=== PATIENT | female | born 1990 | race Caucasian/White ===

== ENCOUNTER 2016-04-16 06:19 | Emergency (ER) | payer OTHER ==
--- NOTE | 2016-04-16 06:44 | PDOC ---
History of Present Illness <Kimberly Dickerson - Last Filed: 04/16/16 06:55> - General History Source: Patient Exam Limitations: No Limitations - History of Present Illness Initial Comments: 04/16/16 07:06 The patient is a 26-year-old female, with a significant past medical history of obesity and hypertension (on Valsartan, 160mg nightly), who presents to the emergency department with chest pain that began a couple of days ago. The patient states the pain is primarily focused on the center of the chest, but can radiate to the right or left side of her chest. She describes that the pain on the left side is sharp in comparison to the right side. She denies associated diaphoresis, palpitations, and shortness of breath. She denies fever , chills, cough, headache, and dizziness. She reports the pain is exacerbated upon strenuous activity and does not report any alleviating factors. The patient reports her LMP was 2 weeks ago and states her menstrual periods are irregular. The patient reports previously being on hydroclothazar for HTN, but being switched to Valsartan recently. She denies nausea, vomiting, diarrhea, and constipation. Allergies: None reported. Past Surgical History: None reported. Social History: +Smoker. Denies alcohol or drug use. <Berta Hernandez - Last Filed: 04/16/16 07:06> <Nate Taylor - Last Filed: 04/16/16 14:16> - General Stated Complaint: CHEST PAIN Time Seen by Provider: 04/16/16 06:21 Past History - Past Medical History HTN: Yes - Psycho/Social/Smoking Cessation Hx Suicidal Ideation: No Smoking History: Current every day smoker Have you smoked in the past 12 months: No Number of Cigarettes Smoked Daily: 5 Hx Alcohol Use: No Drug/Substance Use Hx: No <Kimberly Dickerson - Last Filed: 04/16/16 06:55> <Berta Hernandez - Last Filed: 04/16/16 07:06> <Nate Taylor - Last Filed: 04/16/16 14:16> - Past Medical History Allergies/Adverse Reactions: Allergies Allergy/AdvReac Type Severity Reaction Status Date / Time No Known Allergies Allergy Verified 12/30/15 19:52 Home Medications: Ambulatory Orders Hydrochlorothiazide [Hctz -] 25 mg PO DAILY #30 tablet 12/30/15 Sulfamethoxazole/Trimethoprim [Bactrim *Ds*] 1 tab PO BID #14 tablet 12/30/15 Review of Systems - Review of Systems Able to Perform ROS?: Yes Comments:: 04/16/16 07:06 GENERAL/CONSTITUTIONAL: No fever or chills. No weakness. HEAD, EYES, EARS, NOSE AND THROAT: No change in vision. No ear pain or discharge. No sore throat. CARDIOVASCULAR: +Chest pain. No shortness of breath. RESPIRATORY: No cough, wheezing, or hemoptysis. GASTROINTESTINAL: No nausea, vomiting, diarrhea or constipation. GENITOURINARY: No dysuria, frequency, or change in urination. MUSCULOSKELETAL: No joint or muscle swelling or pain. No neck or back pain. SKIN: No rash NEUROLOGIC: No headache, vertigo, loss of consciousness, or change in strength/ sensation. ENDOCRINE: No increased thirst. No abnormal weight change. HEMATOLOGIC/LYMPHATIC: No anemia, easy bleeding, or history of blood clots. ALLERGIC/IMMUNOLOGIC: No hives or skin allergy. <Berta Hernandez - Last Filed: 04/16/16 07:06> *Physical Exam - Vital Signs Last Vital Signs Temp Pulse Resp BP Pulse Ox 98.2 F 95 H 21 141/99 99 04/16/16 06:48 04/16/16 06:48 04/16/16 06:48 04/16/16 06:48 04/16/16 06:48 - Physical Exam Comments: 04/16/16 07:07 GENERAL: The patient is awake, alert, and fully oriented, in no acute distress. HEAD: Normal with no signs of trauma. EYES: Pupils equal, round and reactive to light, extraocular movements intact, sclera anicteric, conjunctiva clear with no pallor. ENT: Ears normal, nares patent, oropharynx clear without exudates. Moist mucous membranes. NECK: Normal range of motion, supple without lymphadenopathy, JVD, or masses. LUNGS: Breath sounds equal, clear to auscultation bilaterally. No wheeze/ crackles. HEART: Regular rate and rhythm, normal S1 and S2 without murmur or rub. ABDOMEN: Soft/nontender/nondistended. BS wnl. No guarding or rebound. No palpable masses. No hepatosplenomegaly. EXTREMITIES: Normal range of motion, no edema. No clubbing or cyanosis. No cords, erythema, or tenderness. NEUROLOGICAL: Cranial nerves II through XII grossly intact. Normal speech, normal gait. PSYCH: Normal mood, normal affect. SKIN: Warm, Dry, normal turgor, no rashes or lesions noted. <Berta Hernandez - Last Filed: 04/16/16 07:06> - Vital Signs Last Vital Signs Temp Pulse Resp BP Pulse Ox 98.2 F 84 18 128/76 98 04/16/16 06:48 04/16/16 08:01 04/16/16 08:01 04/16/16 08:01 04/16/16 08:01 <Nate Taylor - Last Filed: 04/16/16 14:16> ED Treatment Course - LABORATORY CBC & Chemistry Diagram: 04/16/16 06:05 - RADIOLOGY Radiology Studies Ordered: Category Date Time Status CHEST PA & LAT [RAD] Stat Radiology 04/16/16 06:40 Ordered <Kimberly Dickerson - Last Filed: 04/16/16 06:55> - LABORATORY CBC & Chemistry Diagram: 04/16/16 06:05 - ADDITIONAL ORDERS Additional order review: Laboratory Results 04/16/16 04/16/16 06:05 06:05 INR Cancelled Creatine Kinase Cancelled Troponin I Cancelled Total Amylase Cancelled Lipase Cancelled 04/16/16 06:05 RBC 4.89 MCV 89.2 MCHC 32.7 RDW 13.4 MPV 8.5 Neutrophils % 48.6 Lymphocytes % 43.6 H Monocytes % 4.5 Eosinophils % 1.5 Basophils % 1.8 <Berta Hernandez - Last Filed: 04/16/16 07:06> - LABORATORY CBC & Chemistry Diagram: 04/16/16 06:05 04/16/16 07:31 - ADDITIONAL ORDERS Additional order review: Laboratory Results 04/16/16 04/16/16 04/16/16 12:55 07:31 07:31 INR D-Dimer < 200 Sodium 141 Potassium 4.1 Chloride 111 H Carbon Dioxide 19 L D Anion Gap 11 BUN 7 D Creatinine 0.6 D Creat Clearance w eGFR > 60 Random Glucose 77 Calcium 8.3 L Total Bilirubin 0.3 D AST 21 D ALT 41 Alkaline Phosphatase 88 Creatine Kinase 134 Troponin I < 0.02 Total Protein 7.2 Albumin 4.0 Total Amylase Lipase Serum , Qual Negative 04/16/16 04/16/16 04/16/16 07:31 06:05 06:05 INR 1.03 Cancelled D-Dimer Sodium Potassium Chloride Carbon Dioxide Anion Gap BUN Creatinine Creat Clearance w eGFR Random Glucose Calcium Total Bilirubin AST ALT Alkaline Phosphatase Creatine Kinase Cancelled Troponin I Cancelled Total Protein Albumin Total Amylase Cancelled Lipase Cancelled Serum , Qual 04/16/16 06:05 RBC 4.89 MCV 89.2 MCHC 32.7 RDW 13.4 MPV 8.5 Neutrophils % 48.6 Lymphocytes % 43.6 H Monocytes % 4.5 Eosinophils % 1.5 Basophils % 1.8 <Nate Taylor - Last Filed: 04/16/16 14:16> Medical Decision Making - Medical Decision Making 04/16/16 06:51 Pt comes with chest pain. States that the pain has been ongoing for days and that she came in today because she was worried and the pain was not going away. Pt has HTN and she takes 160 mg Valsartan nightly. SHe gets the meds from the [facility]. SHe used to take HCTZ, but then she was taken off as her BP imporved, and then the BP returned. Pt is obese and she understands that weight loss and low salt diet could reduce her HTN. She has no other medical problems. She smoke cigarettes; she is not on OCPs and she takes no other meds. 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 Pt's EKG is NSR. 04/16/16 06:55 Pt will be signed out to the day docto, who will follow her labs and her CXR. <Kimberly Dickerson - Last Filed: 04/16/16 06:55> *DC/Admit/Observation/Transfer <Kimberly Dickerson - Last Filed: 04/16/16 06:55> - Attestations Scribe Attestion: 04/16/16 07:07 Documentation prepared by Berta Hernandez, acting as electromedical service engineer for Kimberly Dickerson MD. <Berta Hernandez - Last Filed: 04/16/16 07:06> - Discharge Dispostion Admit: No <DaogusNate carrasco - Last Filed: 04/16/16 14:16> Diagnosis at time of Disposition: Viral infection - Discharge Dispostion Disposition: HOME Condition at time of disposition: Stable - Referrals Referrals: Lori Savage MD [Primary Care Provider] -
[2016-04-16 06:53] VITALS: TEMP 98.2; BMI 36.2
[2016-04-16 06:54] LABS: BASOPHIL 1.8 % (0-2.0); EOSINOPHIL 1.5 % (0-4.5); MCH 29.1 pg (25.7-33.7); MCHC 32.7 g/dl (32.0-36.0); MEAN CELL VOLUME 89.2 fl (80-96); MEAN PLT VOLUME 8.5 fl (7.5-11.1); NEUTROPHILS 48.6 % (42.8-82.8); PLATELET COUNT 264 K/MM3 (134-434); RDW 13.4 % (11.6-15.6); WHITE BLOOD COUNT 14.3 K/mm3 (4.0-10.0)
[2016-04-16 08:14] LABS: ANION GAP 11 (8-16); CALCIUM 8.3 mg/dL (8.5-10.1); CO2 19 mmol/L (21-32); CREATININE 0.6 mg/dL (0.55-1.02); GLUCOSE,RANDOM 77 mg/dL (74-106); SGOT/AST 21 U/L (15-37); SGPT/ALT 41 U/L (12-78)
[2016-04-16 08:19] LABS: ALK PHOS 88 U/L (45-117); BILIRUBIN,TOTAL 0.3 mg/dL (0.2-1.0); TOT PROT 7.2 g/dl (6.4-8.2); TROPONIN I < 0.02 ng/ml (0.00-0.05)
[2016-04-16 08:24] LABS: INR 1.03 (0.82-1.09); PROTHROMBIN TIME (PATIENT) 11.3 SEC (9.98-11.88)
[2016-04-16] MEDS ORDERED: guaiFENesin/D-M SUGAR-FREE/ACLHOL-FREE 118 ML BOTTLE PO PRN (14:17)
[2016-04-16 14:48] VITALS: BP 129/67; PULSE 89
[2016-04-16] MEDS ORDERED: guaiFENesin/D-METHORPHAN HB 10 ML UNIT-DOSE CUPS ONE (14:51)
--- NOTE | 2016-04-16 23:42 | EKG ---
Test Reason : Blood Pressure : / mmHG Vent. Rate : 095 BPM Atrial Rate : 095 BPM P-R Int : 146 ms QRS Dur : 088 ms QT Int : 344 ms P-R-T Axes : 041 034 034 degrees QTc Int : 432 ms POOR DATA QUALITY, INTERPRETATION MAY BE ADVERSELY AFFECTED NORMAL SINUS RHYTHM NORMAL ECG WHEN COMPARED WITH ECG OF 30-DEC-2015 19:55, NO SIGNIFICANT CHANGE WAS FOUND Confirmed by ADAM NIX, JAGDISH ([id number]) on 04/16/2016 11:41:49 PM Referred By: Confirmed By:JAGDISH MEDINA MD
== END 2016-04-16 14:54 | disposition home or self-care (01) ==
LOC: JER 06:19
DX: B34.9 Viral infection, unspecified (principal); I10 Essential (primary) hypertension; F17.210 Nicotine dependence, cigarettes, uncomplicated
CPT/HCPCS: 36415; 71020-TC; 80053; 82550; 84484; 84703; 85025; 85379; 85610; 93005; 93010; 99284-25

== ENCOUNTER 2023-02-04 10:02 | Emergency (ER) | payer BC ==
[2023-02-04 10:49] VITALS: TEMP 98; BMI 42.9
[2023-02-04 11:40] LABS: EPI CELLS 12 /uL (0-25.1); HYALINE CASTS 2 /uL (0-3.1); PH,URINE 5.5 (5.0-8.0); URINE APPEARANCE CLOUDY; URINE BACTERIA >9,000 /uL (0-1359); URINE BILIRUBIN NEGATIVE (NEGATIVE); URINE COLOR YELLOW; URINE GLUCOSE (UA) NEGATIVE (NEGATIVE); URINE KETONE NEGATIVE (NEGATIVE); URINE LEUK ESTERASE 2+ (NEGATIVE); URINE NITRITE POSITIVE (NEGATIVE); URINE PROTEIN 1+ (NEGATIVE); URINE WBC 893 /uL (0-25.8)
[2023-02-04 11:42] LABS: HEMATOCRIT 43.6 % (32.4-45.2); HEMOGLOBIN 14.9 GM/dL (10.7-15.3); MCH 30.6 pg (25.7-33.7); MCHC 34.2 g/dl (32.0-36.0); MEAN CELL VOLUME 89.6 fl (80-96); MEAN PLT VOLUME 7.3 fl (7.5-11.1); PLATELET COUNT 365 10^3/uL (134-434); RBC 4.86 M/mm3 (3.60-5.2); WHITE BLOOD COUNT 9.9 K/mm3 (4.0-10.0)
[2023-02-04 11:47] LABS: ALBUMIN 3.7 g/dl (3.4-5.0); BLOOD UREA NITROGEN 7.8 mg/dL (7-18); CALCIUM 8.3 mg/dL (8.5-10.1); MAGNESIUM 2.3 mg/dL (1.8-2.4)
[2023-02-04 11:50] LABS: CREATININE 0.7 mg/dL (0.55-1.3)
[2023-02-04 11:52] LABS: BILIRUBIN,TOTAL 0.2 mg/dL (0.2-1); TOT PROT 7.4 g/dl (6.4-8.2)
[2023-02-04 12:12] LABS: URINE RBC 218.9 /uL (0-23.9)
[2023-02-04] MEDS ORDERED: SODIUM CHLORIDE 1,000 ML IV ONE ×2 (12:58→14:09)
[2023-02-04] MEDS ORDERED: FAMOTIDINE 20 MG/50 ML IVPB 20 MG in PREMIX 50 IVPB ONE ×2 (12:58→14:08)
[2023-02-04] MEDS ORDERED: ONDANSETRON 4 MG/2 ML VIAL IVPB ONE ×2 (12:58→14:08)
[2023-02-04] MEDS ORDERED: LORazepam 0.5 MG TABLET PO ONE (13:19)
[2023-02-04 13:36] LABS: URINE AMPHETAMINES NEGATIVE (NEGATIVE)
[2023-02-04 13:37] LABS: COCAINE, UR NEGATIVE (NEGATIVE); METHADONE, UR NEGATIVE (NEGATIVE); OPIATES, URI NEGATIVE (NEGATIVE); PHENCYCLIDINE,URINE NEGATIVE (NEGATIVE); URINE BARBITURATES NEGATIVE (NEGATIVE); URINE BENZODIAZEPINES NEGATIVE (NEGATIVE)
[2023-02-04 13:44] VITALS: BP 143/88; PULSE 97; RESP 25
[2023-02-04] MEDS ORDERED: CEPHALEXIN MONOHYDRATE 250 MG CAPSULE (FP) PO ONE (13:46)
[2023-02-04] MEDS ORDERED: LORazepam 0.5 MG TABLET ONE (14:05)
[2023-02-04] MEDS ORDERED: CEPHALEXIN MONOHYDRATE 500 MG CAPSULE (UD) ONE (14:06)
[2023-02-04] MEDS ORDERED: CEFTRIAXONE 1 GM in DEXTROSE 5%-WATER - 50 ML IVPB ONE (14:08)
[2023-02-04] MEDS ORDERED: ONDANSETRON 4 MG/2 ML VIAL ONE (14:10)
[2023-02-04] MEDS ORDERED: CEFTRIAXONE 1 GM/50 ML BAG ONE (14:11)
[2023-02-04] MEDS ORDERED: FAMOTIDINE 20 MG/50 ML IVPB 20 MG/50 ML MG IVPB ONE (14:11)
[2023-02-04 14:15] LABS: ANISOCYTOSIS 0; HELMET CELLS 0; HOWELL-JOLLY BODIES 0; MACROCYTOSIS 0; OVALOCYTE 0; ROULEAU 0; SICKELED CELLS 0; TARGET CELLS 0; TEAR DROP CELLS 0; TOXIC GRANULATION 0
[2023-02-04] MEDS ORDERED: METOCLOPRAMIDE HCL INJECTION 10 MG/2 ML VIAL IVPB ONE (14:45)
[2023-02-04] MEDS ORDERED: METOCLOPRAMIDE HCL INJECTION 10 MG/2 ML VIAL ONE (14:56)
[2023-02-04] MEDS ORDERED: HALOPERIDOL LACTATE 5 MG/ML IM ONE (15:11)
[2023-02-04] MEDS ORDERED: HALOPERIDOL LACTATE 5 MG/ML ONE (15:15)
== END 2023-02-04 16:39 | disposition home or self-care (01) ==
LOC: JER 10:02
PROC: 3E03329 Introduction of Other Anti-infective into Peripheral Vein, Percutaneous Approach (ICD-10-PCS; principal; 2023-02-04)
PROC: 3E033GC Introduction of Other Therapeutic Substance into Peripheral Vein, Percutaneous Approach (ICD-10-PCS; 2023-02-04)
PROC: 3E033GC Introduction of Other Therapeutic Substance into Peripheral Vein, Percutaneous Approach (ICD-10-PCS; 2023-02-04)
PROC: 3E033GC Introduction of Other Therapeutic Substance into Peripheral Vein, Percutaneous Approach (ICD-10-PCS; 2023-02-04)
PROC: 3E0337Z Introduction of Electrolytic and Water Balance Substance into Peripheral Vein, Percutaneous Approach (ICD-10-PCS; 2023-02-04)
PROC: 3E023GC Introduction of Other Therapeutic Substance into Muscle, Percutaneous Approach (ICD-10-PCS; 2023-02-04)
DX: F41.0 Panic disorder [episodic paroxysmal anxiety] (principal); R63.0 Anorexia; G47.9 Sleep disorder, unspecified
CPT/HCPCS: 36415; 71045-TC-FY; 80053; 80307; 81003; 82962; 83735; 84443; 84703; 85025; 87086; 87186; 93005; 93010; 99285-25

== ENCOUNTER 2023-05-30 15:37 | Emergency (ER) | payer BC ==
[2023-05-30 16:05] VITALS: BP 126/79; PULSE 99; RESP 16; TEMP 98.6; BMI 44.2
[2023-05-30 17:19] LABS: HEMATOCRIT 42.6 % (32.4-45.2); HEMOGLOBIN 14.3 G/dL (10.7-15.3); MCH 31.6 pg (25.7-33.7); MCHC 33.6 g/dl (32.0-36.0); MEAN PLT VOLUME 7.9 fl (7.5-11.1); PLATELET COUNT 254.3 10^3/uL (134-434); RBC 4.53 10^6/uL (3.60-5.2); WHITE BLOOD COUNT 13.4 10^3/uL (4.0-10.8)
[2023-05-30 17:34] LABS: ALBUMIN 4.6 g/dl (3.4-5.0); BILIRUBIN,TOTAL 0.5 mg/dl (0.2-1); CALCIUM 9.2 mg/dl (8.5-10.1); CREATININE 0.7 mg/dl (0.6-1.3); MAGNESIUM 2.4 mg/dL (1.8-2.4); PHOSPHOROUS 2.9 (2.5-4.9); TOT PROT 7.6 g/dl (6.4-8.2)
[2023-05-30 18:44] LABS: METHADONE, UR NEGATIVE (NEGATIVE); OPIATES, URI NEGATIVE (NEGATIVE); PHENCYCLIDINE,URINE NEGATIVE (NEGATIVE); URINE BARBITURATES NEGATIVE (NEGATIVE); URINE BENZODIAZEPINES NEGATIVE (NEGATIVE)
[2023-05-30 19:25] LABS: COCAINE, UR NEGATIVE (NEGATIVE); URINE AMPHETAMINES NEGATIVE (NEGATIVE)
[2023-05-30 19:43] LABS: PLATELET ESTIMATE ADEQUATE
== END 2023-05-30 21:58 | disposition home or self-care (01) ==
LOC: FER 15:37
DX: T14.91XA Suicide attempt, initial encounter (principal); F10.920 Alcohol use, unspecified with intoxication, uncomplicated; F12.90 Cannabis use, unspecified, uncomplicated; R45.851 Suicidal ideations; M79.604 Pain in right leg; G89.29 Other chronic pain; R26.81 Unsteadiness on feet; Z20.822 Contact with and (suspected) exposure to COVID-19; Y90.8 Blood alcohol level of 240 mg/100 ml or more
CPT/HCPCS: 0241U-QW; 36415; 80053; 80307; 81003; 83735; 84100; 84703; 85025; 87086; 93005; 99285-25

== ENCOUNTER 2023-10-13 11:17 | Emergency (ER) | payer BC ==
[2023-10-13 11:28] VITALS: BP 132/84; PULSE 83; RESP 17; TEMP 98.5; BMI 38.2
[2023-10-13] MEDS ORDERED: KETOROLAC TROMETHAMINE 30 MG/1 ML VIAL ONE (12:44)
[2023-10-13] MEDS ORDERED: ONDANSETRON 4 MG/2 ML VIAL ONE (12:44)
[2023-10-13] MEDS: SODIUM CHLORIDE 0.9% 1000 ML INFUS.BAG IV ONE (13:02)
[2023-10-13] MEDS: ONDANSETRON 4 MG/2 ML VIAL IVPUSH ONE (13:02)
[2023-10-13] MEDS: KETOROLAC TROMETHAMINE 30 MG/1 ML VIAL IVPUSH ONE (13:02)
[2023-10-13 13:10] LABS: BASO % 0.2 % (0-2.0); EOS % 3.4 % (0-4.5); HEMATOCRIT 39.5 % (32.4-45.2); HEMOGLOBIN 13.3 GM/dL (10.7-15.3); MCH 30.4 pg (25.7-33.7); MCHC 33.6 g/dl (32.0-36.0); MEAN CELL VOLUME 90.5 fl (80-96); MEAN PLT VOLUME 8.5 fl (7.5-11.1); MONO % 3.7 % (3.8-10.2); NEUT % 42.7 % (42.8-82.8); PLATELET COUNT 255 10^3/uL (134-434); RBC 4.37 M/mm3 (3.60-5.2); RDW 13.3 % (11.6-15.6)
[2023-10-13 13:23] LABS: POTASSIUM 3.8 mmol/L (3.5-5.1)
[2023-10-13 13:25] LABS: CALCIUM 9.2 mg/dL (8.5-10.1)
[2023-10-13 13:26] LABS: BLOOD UREA NITROGEN 8.5 mg/dL (7-18); MAGNESIUM 2.1 mg/dL (1.8-2.4)
[2023-10-13 13:29] LABS: CREATININE 0.6 mg/dL (0.55-1.3)
[2023-10-13 13:30] LABS: BILIRUBIN,TOTAL 0.4 mg/dL (0.2-1); TOT PROT 7.4 g/dl (6.4-8.2)
[2023-10-13 14:04] LABS: PH,URINE 5.5 (5.0-8.0); URINE APPEARANCE CLEAR; URINE BILIRUBIN NEGATIVE (NEGATIVE); URINE COLOR DK YELLOW; URINE GLUCOSE (UA) NEGATIVE (NEGATIVE); URINE KETONE TRACE (NEGATIVE); URINE LEUK ESTERASE NEGATIVE (NEGATIVE); URINE NITRITE NEGATIVE (NEGATIVE); URINE PROTEIN NEGATIVE (NEGATIVE)
[2023-10-13 14:07] LABS: HCG,QUALITATIVE URINE Negative
[2023-10-13] MEDS ORDERED: oxyCODONE HCL 5 MG TABLET ONE (17:40)
[2023-10-13] MEDS: oxyCODONE HCL 5 MG TABLET PO ONE (17:42)
== END 2023-10-13 18:04 | disposition home or self-care (01) ==
LOC: JER 11:17
PROC: 3E0333Z Introduction of Anti-inflammatory into Peripheral Vein, Percutaneous Approach (ICD-10-PCS; principal; 2023-10-13)
PROC: 3E033GC Introduction of Other Therapeutic Substance into Peripheral Vein, Percutaneous Approach (ICD-10-PCS; 2023-10-13)
DX: K59.01 Slow transit constipation (principal); R10.12 Left upper quadrant pain; R10.13 Epigastric pain; Z98.84 Bariatric surgery status
CPT/HCPCS: 36415; 74177-TC; 80053; 81003; 83605; 83690; 83735; 84703; 85025; 99285-25